=== PATIENT | female | born 1975 | race Caucasian/White ===

== ENCOUNTER 2017-03-31 23:19 | Inpatient (IN) ==
--- NOTE | 2017-03-31 17:56 | HISTORY AND PHYSICAL ---
HISTORY OF PRESENT ILLNESS: The patient is a 42-year-old female 5, para 2-0-2-2 with an EDC of 04/08/2017. She has had 2 previous C-sections and is admitted at this time for a repeat C- section, tubal ligation. She has had routine care, though she has had some chronic hypertension that we have been following for this, but it has been under good control. Blood type is O positive. Group B Strep is negative. PAST MEDICAL HISTORY: x2, breast implants. MEDICATIONS: vitamins. ALLERGIES: None. PHYSICAL EXAMINATION: GENERAL: A well-developed female. HEENT: Benign. NECK: Supple. LUNGS: Clear. HEART: Regular rhythm. ABDOMEN: Soft, nontender. EXTREMITIES: No cyanosis, clubbing or edema. ASSESSMENT AND PLAN: A 42-year-old at term intrauterine , previous x2 admitted at this time for repeat and tubal ligation. She understands the risks of the procedure and all questions were answered. cc: Sam Bynum MD
[2017-03-31] MEDS ORDERED: LR 1,000 ML IV SCH (23:46)
[2017-04-01] MEDS: STADOL IV PRN ×3 (00:37→06:15)
[2017-04-01] MEDS: PHENERGAN IV PRN ×3 (00:40→22:07)
[2017-04-01] MEDS: SODIUM CHLORIDE 0.9% INJ PRN ×2 (00:46→22:07)
[2017-04-01] MEDS ORDERED: KEFZOL 1 GM/D5W 1 GM/50 ML IVPB IV PRN (00:47)
[2017-04-01] MEDS ORDERED: LR 1,000 ML IV SCH (00:47)
[2017-04-01 01:08] LABS: MANUAL DIFF NEEDED? NO
[2017-04-01 01:08] LABS: URINE SOURCE VOIDED
[2017-04-01 01:12] LABS: BASO% 0.3 % (0.0-0.8); EOS# 0.16 X1000 (0.0-0.7); EOS% 1.2 % (0.0-10.0); HEMATOCRIT 35.6 % (37.0-47.0); HEMOGLOBIN 11.6 g/dL (12.0-16.0); IMM GRAN# 0.09 X1000 (0.0-0.04); IMM GRAN% 0.6 % (0.0-0.5); LYMPH# 2.15 X1000 (1.2-3.4); LYMPH% 15.5 % (20.5-51.1); MCH 27.5 PG (27-31); MCHC 32.6 g/dL (33-37); MCV 84.4 FL (81-99); MONO# 1.05 X1000 (0.11-0.59); MONO% 7.6 % (1.7-9.3); MPV 12.8 FL (7.4-10.4); NEUT% 74.8 % (42.2-75.2); PLT 184 X1000 (130-400); RBC 4.22 XMIL (4.2-5.4)
[2017-04-01 01:35] LABS: BILIRUBIN URINE NEGATIVE (NEGATIVE); BLOOD URINE 4+ (NEGATIVE); CLARITY VERY CLOUDY (CLEAR); COLOR PINK; GLUCOSE URINE NEGATIVE (NEGATIVE); LEUKOCYTES URINE TRACE (NEGATIVE); NITRITE URINE NEGATIVE (NEGATIVE); PROTEIN URINE 1+(30 mg/dL) mg/dL (NEGATIVE); SP GRAVITY URINE 1.005; UROBILINOGEN URINE NORMAL
[2017-04-01 01:38] LABS: UR AMPHETAMINES QUAL NONE DETECTED (NONE DETECT); UR BARBITUATES QUAL NONE DETECTED (NONE DETECT); UR BENZODIAZEPIN QUAL NONE DETECTED (NONE DETECT); UR CANNABINOIDS QUAL NONE DETECTED (NONE DETECT); UR COCAINE QUAL NONE DETECTED (NONE DETECT); UR MDMA QUAL NONE DETECTED (NONE DETECT); UR METHADONE QUAL NONE DETECTED (NONE DETECT); UR METHAMPHETAMINE QUAL NONE DETECTED (NONE DETECT); UR OPIATES QUAL NONE DETECTED (NONE DETECT); UR OXYCODONE QUAL NONE DETECTED (NONE DETECT); UR PCP QUAL NONE DETECTED (NONE DETECT); UR TCA QUAL NONE DETECTED (NONE DETECT)
[2017-04-01] MEDS ORDERED: SODIUM CHLORIDE 0.9% INJ ONE (05:53)
[2017-04-01] MEDS ORDERED: PEPCID IV ONE (05:53)
[2017-04-01] MEDS ORDERED: BICITRA PO ONE (05:54)
[2017-04-01] MEDS ORDERED: PITOCIN ONE (06:39)
[2017-04-01] MEDS ORDERED: DURAMORPH ONE (06:40)
[2017-04-01] MEDS ORDERED: ROBINUL ONE (06:40)
[2017-04-01] MEDS ORDERED: NEO-SYNEPHRINE ONE (06:40)
[2017-04-01] MEDS ORDERED: MYLICON PO PRN (06:43)
[2017-04-01] MEDS ORDERED: M-M-R II VACCINE SUBQ ONE (06:43)
[2017-04-01] MEDS ORDERED: CYTOTEC PO PRN (06:43)
[2017-04-01] MEDS ORDERED: PHENERGAN IM PRN (06:43)
[2017-04-01] MEDS ORDERED: PITOCIN IM PRN (06:43)
[2017-04-01] MEDS ORDERED: PITOCIN 20 UNITS/LR 20 UNITS/1,000 ML IV.SOLN IV ONE (06:43)
[2017-04-01] MEDS ORDERED: PERCOCET-5 PO PRN (06:43)
[2017-04-01] MEDS ORDERED: DEMEROL IM PRN (06:43)
[2017-04-01] MEDS ORDERED: DEMEROL PO PRN ×2 (06:43)
[2017-04-01] MEDS ORDERED: HYDROXYZINE IM PRN (06:43)
[2017-04-01] MEDS ORDERED: HYDROXYZINE PO PRN (06:43)
[2017-04-01] MEDS ORDERED: BOOSTRIX VACCINE IM ONE (06:43)
[2017-04-01] MEDS ORDERED: DULCOLAX PR PRN (06:43)
[2017-04-01] MEDS ORDERED: PITOCIN 20 UNITS/LR 20 UNITS/1,000 ML IV.SOLN ONE (07:15)
[2017-04-01] MEDS ORDERED: ZOFRAN ONE (07:20)
[2017-04-01] MEDS ORDERED: ZOFRAN ODT PO PRN (08:08)
[2017-04-01] MEDS ORDERED: ZOFRAN IV PRN ×2 (08:08)
[2017-04-01] MEDS ORDERED: NARCAN INJ PRN (08:08)
[2017-04-01] MEDS ORDERED: BENADRYL IV PRN (08:08)
--- NOTE | 2017-04-01 08:45 | OPERATIVE NOTE ---
PROCEDURE DATE : 04/01/2017 SURGEON: Sam Bynum MD. SEAMING MACHINE OPERATOR: Napoleon Lane MD. PREOPERATIVE DIAGNOSES: 1. Term intrauterine . 2. Previous section x2. 3. Spontaneous rupture of membranes. 4. Multiparity, desires, permanent sterilization. POSTOPERATIVE DIAGNOSES: 1. Term intrauterine . 2. Previous section x2. 3. Spontaneous rupture of membranes. 4. Multiparity, desires, permanent sterilization. PROCEDURE: 1. Repeat low transverse section. 2. Bilateral tubal ligation. ANESTHESIA: Spinal by Dr. Acosta. FINDINGS: The patient had a female infant born, weight 7 pounds 5 ounces. Apgars were 9 and 10. Infant had 1 nuchal cord. DESCRIPTION OF OPERATION: The patient was taken to the operating room and given spinal anesthesia, given Ancef IV, prepped and draped in sterile fashion. I made a Pfannenstiel skin incision, sharply dissected down to fascia. Fascia was dissected off the rectus muscle. Peritoneum was entered into, dissected down. She had a very thin lower segment. We made a low transverse incision, and clear fluid was noted. The incision was carried laterally and the grinder setup operator's hands were introduced. The infant was delivered using fundal pressure without any difficulties. Cord blood was obtained. The placenta was removed. Uterus was cleaned with a clean lap. The incision was closed with #1 chromic in interlocking fashion, single layer closure. I put 2 [id number] in the left corner for hemostasis. Each tube was then picked up by the fimbria, doubly ligated with 0 plain suture, cut and sent to Pathology for identification. The uterus was put back in its anatomic position. Good hemostasis was noted throughout. Irrigation was done. Rectus muscle was closed with 0 chromic suture. Hemostasis was maintained with the Bovie. Fascia was closed with #1 Vicryl. Then 3-0 Vicryl was used subcuticularly, and the skin incision was then closed with a 4-0 Biosyn. Estimated blood loss was 500 mL. Mother and infant are doing well at this time. cc: MD Napoleon Anderson MD
[2017-04-01] MEDS: MORPHINE IV PRN ×5 (08:49→22:12)
[2017-04-01] MEDS: TORADOL IV PRN ×2 (08:49→14:59)
[2017-04-01] MEDS: MYLICON PO SCH ×4 (08:51→22:14)
[2017-04-01] MEDS ORDERED: METHERGINE IV ONE (15:58)
[2017-04-01] MEDS: PITOCIN 10 UNITS/LR 10 UNIT/1,000 ML IV.SOLN IV SCH (17:10)
[2017-04-01] MEDS: METHERGINE PO SCH (19:38)
[2017-04-01] MEDS: AMBIEN PO PRN (22:14)
[2017-04-01] MEDS: PERICOLACE PO SCH (22:14)
[2017-04-02] MEDS: METHERGINE PO SCH ×2 (01:53→07:58)
[2017-04-02] MEDS: MORPHINE IV PRN (01:54)
[2017-04-02] MEDS ORDERED: PITOCIN 10 UNITS/LR 10 UNIT/1,000 ML IV.SOLN IV SCH (02:00)
[2017-04-02] MEDS: TORADOL IV PRN (03:59)
[2017-04-02 06:24] LABS: HEMATOCRIT 24.7 % (37.0-47.0); HEMOGLOBIN 7.8 g/dL (12.0-16.0); MCH 27.5 PG (27-31); MCHC 31.6 g/dL (33-37); MPV 12.6 FL (7.4-10.4); RBC 2.84 XMIL (4.2-5.4)
[2017-04-02] MEDS ORDERED: LR 1,000 ML IV SCH (06:43)
[2017-04-02] MEDS: MOTRIN PO PRN ×2 (07:58→16:11)
[2017-04-02] MEDS: MYLICON PO SCH ×4 (09:00→20:39)
[2017-04-02] MEDS: PITOCIN 10 UNITS/LR 10 UNIT/1,000 ML IV.SOLN IV SCH (10:03)
[2017-04-02] MEDS: PERCOCET-10 PO PRN ×4 (10:52→20:42)
[2017-04-02 12:45] LABS: HEMATOCRIT 21.3 % (37.0-47.0); HEMOGLOBIN 7.1 g/dL (12.0-16.0); MCH 29.5 PG (27-31); MCHC 33.3 g/dL (33-37); MCV 88.4 FL (81-99); MPV 11.9 FL (7.4-10.4); RBC 2.41 XMIL (4.2-5.4)
[2017-04-02] MEDS: PERICOLACE PO SCH (20:39)
[2017-04-02] MEDS: AMBIEN PO PRN (23:19)
[2017-04-03] MEDS: MOTRIN PO PRN ×4 (00:03→23:32)
[2017-04-03] MEDS: PERCOCET-10 PO PRN ×6 (00:04→20:04)
[2017-04-03 06:01] LABS: HEMATOCRIT 18.4 % (37.0-47.0); MCH 27.9 PG (27-31); MCHC 31.5 g/dL (33-37); MCV 88.5 FL (81-99); MPV 12.1 FL (7.4-10.4); RBC 2.08 XMIL (4.2-5.4)
[2017-04-03 06:02] LABS: HEMOGLOBIN 5.8 g/dL (12.0-16.0)
[2017-04-03] MEDS: MYLICON PO SCH ×4 (08:22→20:04)
[2017-04-03] MEDS ORDERED: NS 500 ML IV SCH (11:49)
--- NOTE | 2017-04-03 13:18 | PROGRESS NOTE ---
DATE: 04/03/2017 SUBJECTIVE: She is postop day 2 from delivery. Issues following hemoglobin. Ms. Wilson states she is without complaints. She is ambulating. She is tolerating p.o. No weakness. No dizziness. Describes mild vaginal bleeding. Moderate cramping. OBJECTIVE: Vital Signs: Pulse is slightly elevated at 110. Blood pressure 129/82. Temperature 97.7. General: She does not appear to be in any distress. She is alert and cooperative. Neck: Supple. Lungs: Clear. Heart: Regular sinus rhythm. Abdomen: Distended and nontender with mild guarding. Extremities: +2 lower extremity edema. LABORATORIES: Hemoglobin 5.8 with hematocrit of 18. That is down from a preoperative hemoglobin of 11, so it was 11 and then 7 and then down to 5. ASSESSMENT AND PLAN: We will transfuse with 2 units of red blood cells. Have obtained CT and I have looked at the films. I do not feel that there is any bleeding. We will wait for radiologist interpretation, however, will proceed with blood transfusion and expect probable discharge in the morning. If CT is read as evidence of intraabdominal bleeding we will discuss with the patient returning to the operating room for evacuation. cc: MD Napoleon Gibbons MD
--- NOTE | 2017-04-03 14:09 | Diag Imaging Result Doc PS360 ---
EXAM: CT ABD/PELVIS W/PO AND IV CON INDICATION: post bleeding TECHNIQUE: Dose reduction protocol was used. COMPARISON: None. FINDINGS: There is minimal subsegmental atelectasis at the right lung base. There are calcified granulomata in the spleen. The liver, gallbladder, adrenal glands, and pancreas are unremarkable. The kidneys are unremarkable. The urinary bladder is unremarkable. There is a prominent post gravid uterus with endometrial fluid. There are several droplets of extraluminal gas in the pelvis around the uterus as well as gas in the ventral abdominal wall that is assumed to be related to a very recent . There is minimal fluid in the pelvis that would be expected given the recent . No large pelvic or abdominal fluid collections are appreciated. The GI tract is grossly unremarkable. IMPRESSION: 1.Large post gravid uterus containing endometrial fluid with expected postsurgical changes related to a recent . 2.Other incidental/nonacute findings detailed above. Electronically signed by Napoleon Bocanegra 04/03/2017 2:07 PM
[2017-04-03] MEDS: PERICOLACE PO SCH (20:04)
[2017-04-03] MEDS: AMBIEN PO PRN (23:31)
[2017-04-04] MEDS: PERCOCET-10 PO PRN ×3 (04:17→11:28)
[2017-04-04 07:26] LABS: HEMOGLOBIN 7.7 g/dL (12.0-16.0); MCH 27.8 PG (27-31); MCHC 32.1 g/dL (33-37); MCV 86.6 FL (81-99); MPV 11.5 FL (7.4-10.4); RBC 2.77 XMIL (4.2-5.4)
[2017-04-04] MEDS: MOTRIN PO PRN (08:09)
[2017-04-04] MEDS: MYLICON PO SCH (08:09)
[2017-04-04 08:26] VITALS: BP 144/81
--- NOTE | 2017-04-05 05:12 | DISCHARGE SUMMARY ---
ADMISSION DATE: 03/31/2017 DISCHARGE DATE: 04/04/2017 PROCEDURE: Repeat section with bilateral tubal ligation. HISTORY OF PRESENT ILLNESS: The patient is a 42-year-old, G5, P2-0-2-2, who presented with a intrauterine at term. The patient is with 2 prior C-sections, so desired repeat. Please see full operative report for details. Postoperatively, patient was transferred to the floor for routine postop care. On postop day #0, patient with some postoperative bleeding. So, was started on Methergine. Postop day #1, hematocrit returned 24 with a repeat of 21. Patient asymptomatic. Briones catheter was discontinued and patient demonstrated the ability to void. On postop day #2, hematocrit returned 18. So, patient was transfused 2 units of packed red blood cells. On postop day #, hematocrit ephraim appropriately to 24. Patient was tolerating a regular diet, ambulating without difficulty with normal lochia and was felt to be stable for discharge home. DISCHARGE DISPOSITION: The patient is discharged home. PRIMARY PROCEDURE: Repeat section with bilateral tubal ligation. FOLLOWUP: The patient to follow up in 1 week for postop visit. cc: MD Napoleon Charles MD
== END 2017-04-04 13:15 | disposition home or self-care (01) ==
LOC: P.LD 23:19 → P.WC 04-01 09:52
PROVIDERS: ADMIT Obstetrics & Gynecology; ATTEND Obstetrics & Gynecology